=== PATIENT | female | born 1950 | race Caucasian/White ===

== ENCOUNTER 2018-10-18 11:20 | Outpatient (CLI) | payer MEDICARE | END 2018-10-18 11:21 | disposition home or self-care (01) | LOC: BICMAMMO 11:20 | PROVIDERS: ATTEND Family Medicine | DX: Z12.31 Encounter for screening mammogram for malignant neoplasm of breast (principal) | CPT/HCPCS: 77063; 77067 ==

== ENCOUNTER 2018-12-19 14:14 | Outpatient (CLI) | payer MEDICARE ==
--- NOTE | 2018-12-19 15:43 | BD ---
DEXA BONE DENSITOMETRY: (Dual energy X-ray Absorptiometry) 12/19/18 HISTORY: 68-year-old postmenopausal white female for age-related osteoporosis screening examination. Weight: 136 lb. Ht. 65 inches Age of menopausal: 44 years COMPARISON: None available. FINDINGS: The bone mineral density (BMD) is given in grams per square centimeter (g/cm2): LUMBAR SPINE: BMD(g/cm2) T-score Z-score L1: 0.915 -0.7 1.1 L2: 0.987 -0.4 1.6 L3: 1.162 0.7 2.8 L4: 1.112 0.5 2.6 Total: 1.045 0.0 2.0 HIP: Femoral neck: 0.570 -2.5 -0.8 Total: 0.759 -1.5 0.0 IMPRESSION: 1) The mean bone mineral density of the lumbar spine is normal. Fracture risk is not increased. 2) The bone mineral density of the femoral neck is osteoporotic. Fracture risk is high. DIAMOND Restrepo POS: EMILIANA
== END 2018-12-19 14:15 | disposition home or self-care (01) ==
LOC: BICMAMMO 14:14
PROVIDERS: ATTEND Family Medicine
DX: Z13.820 Encounter for screening for osteoporosis (principal); M81.0 Age-related osteoporosis without current pathological fracture; Z78.0 Asymptomatic menopausal state
CPT/HCPCS: 77080

== ENCOUNTER 2019-05-29 08:47 | Outpatient (CLI) | payer MEDICARE ==
--- NOTE | 2019-05-29 09:32 | RAD ---
RIGHT HIP 2 VIEWS: Date: 05/29/19 HISTORY: Hip pain. FINDINGS: No evidence of fracture. No osseous abnormality. No significant degenerative change. IMPRESSION: Unremarkable right hip. POS: EMILIANA
== END 2019-05-29 08:48 | disposition home or self-care (01) ==
LOC: BICRAD 08:47
PROVIDERS: ATTEND Family Medicine
DX: M25.551 Pain in right hip (principal)

== ENCOUNTER 2021-01-21 08:52 | Outpatient (CLI) | payer MEDICARE | END 2021-01-21 08:53 | disposition home or self-care (01) | LOC: BICMAMMO 08:52 | PROVIDERS: ATTEND Family Medicine | DX: Z12.31 Encounter for screening mammogram for malignant neoplasm of breast (principal); M81.0 Age-related osteoporosis without current pathological fracture; Z78.0 Asymptomatic menopausal state | CPT/HCPCS: 77063; 77067; 77080 ==